=== PATIENT | male | born 1945 | race Caucasian/White ===

== ENCOUNTER 2018-05-12 08:22 | Inpatient (IN) | payer MEDICARE, MEDICAID | END 2018-05-15 12:40 | disposition home or self-care (01) | LOC: PAS IN 08:22 → ORTHO 4S 15:00 | PROC: 0SR90J9 Replacement of Right Hip Joint with Synthetic Substitute, Cemented, Open Approach (ICD-10-PCS; principal; 2018-05-12 12:02) | DX: M16.11 Unilateral primary osteoarthritis, right hip (principal) ==